=== PATIENT | male | born 1935 | race Caucasian/White ===

== ENCOUNTER → 2023-07-06 12:39 | Outpatient (REF) | payer MEDICARE, OTHER, SELFPAY | LOC: HWRCS 12:39 | PROVIDERS: ATTENDING PHYSICIAN Family Medicine | DX: I12.9 Hypertensive chronic kidney disease with stage 1 through stage 4 chronic kidney disease, or unspecified chronic kidney disease (principal); R06.02 Shortness of breath; I49.9 Cardiac arrhythmia, unspecified | CPT/HCPCS: 93306 ==

== ENCOUNTER → 2024-01-10 12:20 | Outpatient (REF) | payer MEDICARE, OTHER, SELFPAY | LOC: HWRAD 12:20 | PROVIDERS: ATTENDING PHYSICIAN Internal Medicine Cardiovascular Disease; FAMILY PHYSICIAN Family Medicine | DX: I77.819 Aortic ectasia, unspecified site (principal) | CPT/HCPCS: 71275; Q9967 ==

== ENCOUNTER 2024-11-12 20:28 | Emergency (ER) | payer MEDICARE, OTHER, SELFPAY ==
[2024-11-12 20:29] VITALS: BP 179/96
[2024-11-12 20:55] LABS: Hematocrit 37.0 % (39.0-52.0); Hemoglobin 12.9 g/dL (13.0-18.0); Mean Corp Hgb Conc. 34.9 g/dL (33.0-37.0); Mean Corpuscular Volume 93.2 fL (80.0-94.0); Nucleated Red Blood Cells % 0 % (-); Platelet Count 170 10^3/uL (130-400); Red Cell Dist. Width 14.4 % (11.5-14.5)
[2024-11-12 21:05] LABS: Urine Character Cloudy (Clear)
[2024-11-12 21:17] LABS: ALT (SGPT) 19 U/L (0-50); AST (SGOT) 36 U/L (17-59); Albumin 4.7 g/dl (3.5-5.0); Alkaline Phosphatase 92 U/L (38-126); Blood Urea Nitrogen 23 mg/dl (9-20); Calcium 9.1 mg/dl (8.4-10.2); Carbon Dioxide 22 mmol/L (22-30); Chloride 110 mmol/L (98-107); Glucose 106 mg/dl (70-99); Potassium 4.9 mmol/L (3.5-5.1); Sodium 142 mmol/L (135-145); Total Protein 7.2 g/dl (6.3-8.2); eGFR 58.53
[2024-11-12 21:24] LABS: Urine Red Blood Cell >100 /HPF (0-2); Urine Squamous Cell 0-2 /LPF (Few); Urine White Cell 16-20 /HPF (0-5)
--- NOTE | 2024-11-12 22:47 | ED.GENMED ---
History of Present Illness
General
Chief Complaint: Male Genito-Urinary Symptoms
Source: patient
Exam Limitations: none
Time Seen by Provider: 11/12/24 22:26
History of Present Illness
History of Present Illness:
89yoM with a history of hypertension, kidney stones, gout, and remote history of prostate cancer presenting with his and daughter for painless hematuria. Patient urinated this evening around 8 PM and he noticed some bright red blood at the end
of his urine stream. He decided to come to the ED for evaluation. He denies any clots in stream or urinary retention. No associated dysuria, frequency, fevers, chills, flank pain, abdominal pain, vomiting. He does have a history of kidney stones
but states he is not having any symptoms consistent with this. He does not take any blood thinners.
Past History
Past History
ED Past Medical History: Asthma, Cancer (Prostate CA, Radiation) and HTN
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
Social History
Tobacco: Non-smoker
Alcohol: None
Personal:
Living: with family
Employment: Retired
Family History
Family History: Other (Noncontributory)
Phy Exam
General Physical Exam
General Presentation: well appearing and no apparent distress
General Skin: warm and dry
General Habitus: normal
General Mental: alert
ENT Exam
ENT Exam: normocephalic
Pulmonary Exam
Pulmonary Exam: no respiratory distress
Gastrointestinal Exam
Gastrointestinal Exam: non tender, soft, non distended and no cva tenderness
Neurological Exam
Neurological Exam: alert
[place] Coma Scale
Eye Opening: Spontaneous
Verbal Response: Oriented
Motor Response: Obeys Commands
GCS Total Score: 15
Skin Exam
Skin Exam: normal color and warm/dry
Psychiatric Exam
Psychiatric Exam: normal mood/affect
Course
Orders/Labs/Results
Orders:
Orders
11/12/24 20:44
Complete Blood Count/With Diff Urgent
Comprehensive Metabolic Panel Urgent
Urinalysis Reflex To Culture Urgent
Date Specimen was Collected: 11/12/24
Time Specimen was Collected: 20:31
Urine Microscopic Reflex Cult Urgent
Urine Culture Urgent
BEREKET Source: U
Specimen Description:
Date Specimen was Collected: 11/12/24
Time Specimen was Collected: 20:31
11/12/24 22:47
Doxycycline [Vibramycin] 100 mg PO NOW STA
Abnormal Lab Results
11/12/24
20:44
RBC 3.97 L 10^6/uL
(4.70-6.10)
Hgb 12.9 L g/dL
(13.0-18.0)
Hct 37.0 L %
(39.0-52.0)
MCH 32.5 H pg
(27.0-31.0)
Absolute Monos (auto) 0.7 H 10^3/uL
(0.1-0.6)
Chloride 110 H mmol/L
(98-107)
BUN 23 H mg/dl
(9-20)
Glucose 106 H mg/dl
(70-99)
Ur Occult Blood Reflex 4+ A
(Negative)
Leukocyte Esterase Rfl 1+ A
(Negative)
Urine RBC >100 A /HPF
(0-2)
Urine WBC (Reflex) 16-20 A /HPF
(0-5)
Urine Bacteria (Reflex) Moderate A
(Negative)
Urine Albumin (Reflex) 3+ A
(Neg - Trace)
11/12/24 20:44
11/12/24 20:44
Vital Signs
Initial and Last Documented VS:
Initial Vital Signs
Temp Pulse Resp BP Pulse Ox
98.2 F 76 16 179/96 100
11/12/24 20:29 11/12/24 20:29 11/12/24 20:29 11/12/24 20:29 11/12/24 20:29
Last Documented Vital Signs
Temp Pulse Resp BP Pulse Ox
98.2 F 76 16 179/96 100
11/12/24 20:29 11/12/24 20:29 11/12/24 20:29 11/12/24 20:29 11/12/24 22:48
MDM/Problems Addressed
Differential Diagnosis Includes:
89yoM here with painless hematuria that started this evening. Otherwise asymptomatic and denies flank pain, fevers, vomiting. No blood thinners. He is hypertensive with otherwise stable vitals. He is very well appearing on exam. Abdominal exam
benign. Differential diagnosis includes but is not limited to: UTI, BPH, malignancy, doubt kidney stone given lack of pain
Workup initiated in triage. Hemoglobin 12.9 which is improved from prior labs in 2019. White count and creatinine within normal limits. UA with >100 RBCs as well as 16-20 WBC and moderate bacteria suggesting infection. Suspect hemorrhagic
cystitis. Will defer CT at this time given lack of pain and benign exam. He was started on a course of doxycycline. Advised f/u with PCP. Discussed possible need for cystoscopy if symptoms persist. Strict ED return precautions reviewed.
Patient and family in agreement with plan and he was discharged in stable condition.
*Pulse Oximetry
SaO2: 100
Oxygen Mode of Delivery: Room air
Patient hypoxic: no (100%)
*Critical Care Note
Total Time (30-74mins, 75-104mins- exclusive of procedures): Not Applicable
ED Attending Note
-
Portions of this chart may have been created with voice recognition software.� Occasional wrong word or��sound alike� substitutions may have occurred due to the inherent limitations of voice recognition software.
Discharge Plan
Departure
Patient Disposition: Home (Routine Discharge)
Date of Disposition: 11/12/24
Time of Disposition: 22:49
Patient with high blood pressure during this ER visit?: Yes
Discharge Problem:
Urinary tract infection with hematuria
Instructions: Blood in the Urine (Hematuria), Adult (DC)
Prescriptions:
New
doxycycline hyclate 100 mg capsule
100 mg PO BID Qty: 13 0RF
No Action
lisinopril 20 MG tablet
20 mg PO DAILY
hydrochlorothiazide 12.5 MG capsule
12.5 mg PO DAILY
omeprazole 20 MG capsule,delayed release(DR/EC)
20 mg PO DAILY
allopurinol 300 MG tablet
300 mg PO DAILY
acetaminophen [Tylenol Arthritis] 650 MG tablet extended release
1,300 mg PO PRN PRN (Reason: pain)
celecoxib 200 MG capsule
200 mg PO DAILY Qty: 30 0RF
acetaminophen 325 MG tablet
650 mg PO Q4HWA 0RF
aspirin 325 MG tablet
325 mg PO DAILY 0RF
tamsulosin 0.4 MG capsule
0.4 mg PO DAILYPRN PRN (Reason: bladder scan volume > 400 mL) 0RF
oxycodone 5 MG tablet
5 mg PO Q4HPRN PRN (Reason: mild pain) Qty: 40 0RF
diazepam 5 MG tablet
5 mg PO BID PRN (Reason: spasm) Qty: 14 0RF
Referrals:
Nvuia Rapp MD [Family Provider, Family Practice]
Activity Restrictions/Additional Instructions:
Take antibiotics as prescribed. Drink plenty of fluids and stay hydrated.
Please follow-up with your family doctor. Return to the ER with any worsening symptoms including fevers, chills, flank pain, or if you are unable to urinate.
Interventions
Interventions:
*Risk Screen - Suicide Last Done: 11/12/24 23:35
*General Assessment Last Done: 11/12/24 23:35
*Neglect/Abuse Screening Last Done: 11/12/24 23:35
*ED- Fall Risk Assessment Last Done: 11/12/24 23:35
*ED COVID-19 Vaccine History Last Done: 11/12/24 23:35
*Nursing Disposition Last Done: 11/12/24 23:35
ED-Male Genitourinary Assessment Last Done: 11/12/24 23:34
Discharge Date and Time
Discharge Date/Time: 11/12/24 23:36
Print Language: KOREAN
[2024-11-12] MEDS: VIBRAMYCIN 100 MG PO (23:19)
== END 2024-11-12 23:36 | disposition home or self-care (01) ==
LOC: EMR 20:28
PROVIDERS: Emergency Medicine; EMERGENCY PHYSICIAN Emergency Medicine; FAMILY PHYSICIAN Family Medicine
DX: N39.0 Urinary tract infection, site not specified (principal); R31.9 Hematuria, unspecified; I10 Essential (primary) hypertension; J45.909 Unspecified asthma, uncomplicated; M10.9 Gout, unspecified; Z85.46 Personal history of malignant neoplasm of prostate; Z87.442 Personal history of urinary calculi; Z96.611 Presence of right artificial shoulder joint
CPT/HCPCS: 99283; 80053; 81003; 81015; 85025; 87086; 87147

== ENCOUNTER → 2025-01-01 12:48 | Outpatient (REF) | payer MEDICARE, OTHER, SELFPAY ==
[2025-01-01 14:25] LABS: PSA, Total - Diagnostic 2.23 ng/ml (0.0-4.0)
== END ==
LOC: REG 12:48
PROVIDERS: ATTENDING PHYSICIAN Specialist; FAMILY PHYSICIAN Family Medicine
DX: C61 Malignant neoplasm of prostate (principal)
CPT/HCPCS: 36415; 84153

== ENCOUNTER → 2025-01-06 12:11 | Outpatient (REF) | payer MEDICARE, OTHER, SELFPAY | LOC: RAD 12:11 | PROVIDERS: ATTENDING PHYSICIAN Specialist; FAMILY PHYSICIAN Family Medicine | DX: R31.9 Hematuria, unspecified (principal) | CPT/HCPCS: 74178; Q9967 ==

== ENCOUNTER 2025-01-22 06:30 | Day surgery (SDC) | payer MEDICARE, OTHER, SELFPAY ==
[2025-01-22] VITALS (9 sets, daily range): BP systolic 133–168; BP diastolic 70–87; BMI 29.0
[2025-01-22] MEDS: NORMOSOL-R/PLASMALYTE-A 1000 IV (10:50)
[2025-01-22] MEDS: FLOMAX 0.4 MG PO (13:30)
== END 2025-01-22 15:04 | disposition home or self-care (01) ==
LOC: SDS 06:30
PROVIDERS: ATTENDING PHYSICIAN Specialist
DX: R31.0 Gross hematuria (principal); D49.4 Neoplasm of unspecified behavior of bladder; N20.1 Calculus of ureter; N32.89 Other specified disorders of bladder
CPT/HCPCS: 52234; 74420; 76000; 88307; 93005; C1758; C1769